=== PATIENT | male | born 1965 | race Caucasian/White ===

== ENCOUNTER 2020-02-16 13:06 | Emergency (ER) | payer BC ==
[~2020-02-16] VITALS: Ht 188 cm; Wt 115.0 kg
[2020-02-16] MEDS ORDERED: NAPROXEN500 MG (13:20)
[2020-02-16 14:37] VITALS: BP 133/91
== END 2020-02-16 14:33 | disposition home or self-care (01) ==
LOC: ED 13:06
DX: S27.818A Other injury of esophagus (thoracic part), initial encounter (principal); T18.128A Food in esophagus causing other injury, initial encounter; W45.8XXA Other foreign body or object entering through skin, initial encounter; Z79.1 Long term (current) use of non-steroidal anti-inflammatories (NSAID)